=== PATIENT | female | born 1990 | race Two or more races ===

== ENCOUNTER 2019-04-26 21:12 | Emergency (ER) | payer SELFPAY ==
[~2019-04-26] VITALS: Ht 167.6 cm; Wt 66.0 kg
[2019-04-26] MEDS ORDERED: IBUPROFEN 400MG TABLET PO ONE (21:45)
[2019-04-26] MEDS ORDERED: CYCLOBENZAPRINE 10MG TABLET PO ONE (21:45)
[2019-04-26] MEDS ORDERED: BACITRACIN ZINC OINT UDPKT TOP ONE (22:15)
[2019-04-26 22:40] LABS: CLARITY URINE CLEAR (CLEAR); COLOR URINE YELLOW (YELLOW); KETONES URINE TRACE (NEGATIVE); LEUKOCYTE ESTERASE URINE NEGATIVE (NEGATIVE); NITRITE URINE NEGATIVE (NEGATIVE); OCCULT BLOOD URINE NEGATIVE (NEGATIVE); PROTEIN URINE NEGATIVE (NEGATIVE); SPECIFIC GRAVITY URINE 1.025 (1.005-1.030); UROBILINOGEN URINE 0.2 E.U./dL (0.2-1.0)
[2019-04-26 23:06] VITALS: BP 105/62
== END 2019-04-26 23:09 | disposition home or self-care (01) ==
LOC: ER 21:12
DX: S13.9XXA Sprain of joints and ligaments of unspecified parts of neck, initial encounter (principal); S63.501A Unspecified sprain of right wrist, initial encounter; S80.212A Abrasion, left knee, initial encounter; M25.561 Pain in right knee; R10.30 Lower abdominal pain, unspecified; V89.2XXA Person injured in unspecified motor-vehicle accident, traffic, initial encounter; Y93.89 Activity, other specified; Y92.89 Other specified places as the place of occurrence of the external cause; Y99.8 Other external cause status
CPT/HCPCS: 29125; 73110; 81025; 99284

== ENCOUNTER 2020-01-01 00:21 | Emergency (ER) | payer OTHER ==
[~2020-01-01] VITALS: Ht 157.5 cm; Wt 60.0 kg
[2020-01-01] MEDS ORDERED: TETANUS, DIPHTHERIA, PERTUSSIS VAC/PF 0.5ML (>7YR OLD) IM ONE (00:45)
[2020-01-01 01:10] LABS: BASOPHILS % 0.4 % (0.0-2.0); EOSINOPHILS % 2.5 % (0.0-5.0); HEMATOCRIT. 39.8 % (36.0-48.0); LYMPHOCYTES % 48.2 % (20.0-50.0); MEAN CORPUSCULAR HEMOGLOBIN 31.1 pg (28.0-32.0); MEAN CORPUSCULAR VOLUME 88.4 fL (81.0-99.0); MEAN PLATELET VOLUME 7.2 fl (7.4-10.4); MONOCYTES % 7.8 % (2.0-8.0); NEUTROPHILS % 41.1 % (40.0-76.0); PLATELET 320 x1000/uL (130-400); RED CELL DISTRIBUTION WIDTH 13.6 % (11.6-14.6)
[2020-01-01 01:12] VITALS: BP 113/76
[2020-01-01 01:15] LABS: CHLORIDE 105 mEq/L (98-107)
[2020-01-01 01:16] LABS: HCG SCREEN NEGATIVE
[2020-01-01 02:02] LABS: HEPATITIS B SURFACE ANTIGEN NEGATIVE
== END 2020-01-01 01:15 | disposition home or self-care (01) ==
LOC: ER 00:21
DX: S61.233A Puncture wound without foreign body of left middle finger without damage to nail, initial encounter (principal); W46.1XXA Contact with contaminated hypodermic needle, initial encounter; Y92.89 Other specified places as the place of occurrence of the external cause; Y99.0 Civilian activity done for income or pay; Y92.238 Other place in hospital as the place of occurrence of the external cause; Z88.1 Allergy status to other antibiotic agents; Z88.8 Allergy status to other drugs, medicaments and biological substances
CPT/HCPCS: 36415; 80053; 84703; 85025; 99283